=== PATIENT | female | born 1960 | race Caucasian/White ===

== ENCOUNTER 2020-04-28 22:25 | Outpatient (CLI) | payer OTHER, SELFPAY ==
--- NOTE | 2020-04-28 11:56 | DI.RAD_ITS ---
EXAM: XR LUMBAR SPINE COMPLETE CLINICAL HISTORY: Persistent radiculopathy despite PT M54.31 SCIATICA M25.551 PAIN RT HIP. TECHNIQUE: 2D digital imaging was performed. COMPARISON: No exams were available for comparison FINDINGS: There is severe narrowing of the L1-2 disc space greater on the left. There are prominent endplate o steophytes. There is severe narrowing of the L2-3 and L3-4 disc spaces, eccentric toward the right. There are prominent endplate osteophytes. There is moderate narrowing of the L4-5 disc space. Ther e is moderate narrowing of the L5-S1 disc space. Asymmetric degenerative disc changes create a mild- to-moderate levoscoliosis. Facet degenerative changes are seen greatest at L5-S1. There is no spond ylolysis or spondylolisthesis. The aorta shows calcification but is normal in diameter. IMPRESSION: Advanced degenerative disc changes throughout. Degenerative scoliosis. DATA REPOSITORY: RADIATION DOSE DELIVERED:
== END 2020-04-28 22:45 ==
PROVIDERS: Visit Provider Nurse Practitioner Family
DX: M47.26 Other spondylosis with radiculopathy, lumbar region (principal); M25.551 Pain in right hip; M54.31 Sciatica, right side; M41.86 Other forms of scoliosis, lumbar region
CPT/HCPCS: 72110

== ENCOUNTER 2020-05-22 09:35 | Outpatient (CLI) | payer OTHER, SELFPAY ==
--- NOTE | 2020-05-18 10:30 | DI.MRI_ITS ---
EXAM: MR LUMBAR SPINE WO CLINICAL HISTORY: XR SHOWED DJD,DISC SPACE NARROWING,SCIATICA RT SIDE,M54.31. TECHNIQUE: Multiplanar multisequence MRI of the Lumbar spine was performed. COMPARISON: CR XR LUMBAR SPINE COMPLETE from 04/28/2020 FINDINGS: Review of the plain films reveals transitional anatomy. There are 6 non rib-bearing vertebrae. Ther e are no plain films of the thoracic spine 2 aid in accurate counting. This is important if this pat ient is ever to be a surgical candidate (so as to avoid operating on the wrong level). The lower most vertebra will be named L5 for this examination. It will be assumed that T12 has rudim entary ribs. Please note that plain films reveal multi level chronic degenerative disc disease and d egenerative scoliosis convex left. MRI FINDINGS: Conus medullaris is at normal level. There is no evidence of conus mass nor subjacent clumping of in trathecal nerve roots to suggest arachnoiditis. The distal thecal sac appears unremarkable.There is no evidence of Tarlov intrasacral cysts nor other significant findings within the sacral canal. Bones:There are no fractures nor ominous osseous lesions in the lumbar vertebral bodies and visualize d sacrum. There are multilevel Modic sub endplate marrow changes. With respect to the individual levels... T12-L1: Decreased disc height and signal. Annular bulging but only minimal compression of the thecal sac. No true central canal stenosis. No prominent foraminal stenosis. Mild facet arthropathy. L1-2: Chronic decreased disc height and signal. There is broad annular bulging which is most promine nt on the right side where there is a disc protrusion at the level of the exiting right neural forame n. There is mild impression of the anterior thecal sac by the annular bulging. Mild central canal s tenosis. There is significant right-sided foraminal stenosis due to the disc protrusion plus signifi cant disc height loss at this level. Also related to the scoliosis. Only minimal narrowing of the o pposite left sided foramen. L2-3: Advanced disc height loss also at this level, more so on the right than the left. Annular bulg ing with significant extensive bulging into the exiting right neural foramen with significant narrowi ng of the exiting right neural foramen. No narrowing of the exiting left neural foramen. This is be cause of the better preservation of the disc height on the left side of this disc space. The annular bulging compresses the thecal sac resulting in mild-moderate central spinal canal stenosis. There a re mild degenerative changes in the facet joints. L3-4: Moderate disc space narrowing, also more prominent on the right than the left side of this disc space. There is broad annular bulging which flattens the anterior aspect of thecal sac and results in mild-moderate central spinal canal stenosis. Bulging annulus extends into the floor of the exitin g right neural foramen. There is moderate right-sided foraminal stenosis. No significant foraminal stenosis on the opposite-left side where there is better preservation of disc height.Diffuse annular bulging flattens the anterior aspect of the thecal sac. L4-5: This level exhibits milder disc space narrowing, more prominent on the left than the right side and there are Modic type 2 sub endplate marrow and fatty marrow changes. This level exhibits a part ial right laminectomy defect. There is annular bulging but no central spinal canal stenosis. The an nular bulging extends into the floor of the exiting left neural foramen and results in significant le ft-sided foraminal stenosis at this level due to a combination of the bulging annulus and more promin ent disc height loss on the left side than the right side of this disc space. There is no significan t foraminal narrowing on the right side. Minimal facet arthropathy. L5-S1: This level exhibits Modic type 2 sub endplate fatty marrow changes and disc space narrowing. Mild annular bulging with a superimposed central subligamentous disc protrusion which extends posteri brii 2 millimeters and is 13 millimeters wide. This contacts the anterior aspect of the thecal sac b ut the central canal dimensions are lower normal here. Annular bulging extends into the floor of the exiting neural foramina mildly but without significant foraminal stenosis on the right side. There is moderate foraminal stenosis on the left side at this level. Soft tissues: paraspinal soft tissues appear unremarkable. IMPRESSION: 1. Multilevel chronic advanced asymmetric degenerative disc space narrowing as described individually above, this resulting in multilevel asymmetric foraminal stenosis, also described individually above . The asymmetric foraminal stenosis is mostly related to asymmetric vertical foraminal stenosis whic h is due to asymmetry in height loss of disc material at multiple levels, as described above. There is only mild central spinal canal stenosis. 2. At L5-S1 level there is small central subligamentous disc protrusion which contacts the thecal sac but there is no true central canal stenosis at this level. 3. There is only mild facet arthropathy in the lumbar spine. 4. There appears to be a partial right-sided laminectomy defect at L4-5 level. There is no central canal stenosis at this level. 5. Please note that there is transitional anatomy here. There are 6 non rib-bearing vertebrae. If this patient is ever to be a surgical candidate then I recommend plain films of the thoracic spine so that accurate counting can be performed. In addition, if this patient is ever to be a surgical cand idate then close correlation of plain films with MRI is recommended, this so as to avoid operating on the wrong level. DATA REPOSITORY:
--- OUTSIDE RECORDS SUMMARY | 2020-05-22 09:39 | XMS_ITS ---
:1960 Author Care Team Providers Name Role Phone RICK MENA Primary Care Provider [phone] Allergies Code Code System Name Reaction Severity Status Onset NKDA ? Medications Name Status Start Date Stop Date ? ? amoxicillin 875 mg tablet Completed 08/23/20162016 1 (one) Tablet: bid - twice daily Chantix Continuing Month Box 1 mg tablet Completed 012 04/23/2012 1 (one) Tablet: daily Chantix Starting Month Box 0.5 mg (11)-1 mg (42) tablets in dose pack Completed 03/04/2011 04/23/2012 1 (one) Pack: Take per dosing instructions in package Cipro 250 mg tablet Completed 02/08/2010 02/09/2010 1 (one) Tablet: two times daily for 10 days clindamycin 2 % vaginal cream Completed 08/03/2013 1 (one) Applicator: At bedtime clindamycin HCl 300 mg capsule Completed 08/30/2016 0 09/06/2016 1 (one) Capsule: four times daily cyclobenzaprine 10 mg tablet Completed 04/13/2010 1 (one) Tablet: every 6-8 hrs at night diazepam 5 mg tablet Completed 06/26/2016 10/11/2016 1 (one) Tablet Tablet: every four hours, as needed Dilaudid 2 mg tablet Completed 06/11/2016 10/11/2016 1 (one) Tablet Tablet: as needed fluoxetine 10 mg capsule Active ? Not kentrell ilable TAKE 1 CAPSULE BY MOUTH ONCE DAILY gabapentin 100 mg capsule Completed 04/04/20102010 1-3 Capsule: at bedtime gabapentin 300 mg capsule Active ? Not av ailable hydrocodone 10 mg-acetaminophen 325 mg tablet Completed 04/04/2010 half - 2 Tablet: every 4-8 hrs as needed ibuprofen 800 mg tablet Completed 01/25/2014 06/02/19 16 1 (one) Tablet: 2-3 times daily lactulose 10 gram/15 mL oral solution Completed 04/02/2010 04/27/2010 1-2 Tablespoon(s): qd - daily or QOD prn Medrol (Lino) 4 mg tablets in a dose pack Completed 017 06/26/2016 1 (one) Milligram Milligram: as directed morphine 15 mg immediate release tablet Completed 04/13/19 11 04/27/2010 half - 1 Tablet: every 4-8 hours as needed nabumetone 500 mg tablet Completed 04/23/2012 013 1 (one)- 2 (two) Tablet: daily, as needed naproxen 500 mg tablet Completed 03/10/2008 9 1 (one) Tablet: Twice daily as needed for arm pain nicotine 7 mg/24 hr daily transdermal patch Active ? Not available Apply 1 patch every day by transdermal route. omeprazole 20 mg capsule,delayed release Completed 017 07/26/2016 1 (one) Capsule: qd - daily omeprazole 40 mg capsule,delayed release Completed 011 05/15/2010 1 (one) Capsule DR: daily ondansetron HCl 4 mg tablet Completed 06/10/201605/20 1 (one) Tablet: Every 6- 8 hours prn nausea prednisone 10 mg tablet Completed 06/26/2016 07/13/19 17 see comments Tablet: See comments triamcinolone acetonide 0.025 % topical cream Completed 09/06/2016 1 (one) Application: 2 times daily Ultram 50 mg tablet Completed 02/25/2008 02/25/2008 1-2 Tablet: At bedtime as needed for left arm and shoulder esperanza Problems Name Status Onset Date Source ? Mononeuritis Active ? History Idiopathic Osteoarthritis Active ? Histor y Osteoarthrosis of the Carpometacarpal Joint of Active ? History the Thumb Walking Disability Active ? History Degeneration of Lumbosacral Intervertebral Disc Active ? History Lumbosacral Radiculopathy Active ? Histor y Plantar Fascial Fibromatosis Active ? His tory Muscle Pain Unknown ? History Pain in Lower Limb Unknown ? History Lack of Energy Unknown ? History Nausea Unknown ? History Gynecologic Examination Unknown ? History Screening Mammography Unknown ? History Menopause Present Active ? History Pain in Left Knee Unknown ? History Anemia Unknown ? History Procedure by Method Unknown ? History Postprocedural Infection Unknown ? History Procedures Date Name Performed by ? 01/20/2014 Orthopedic Surgery Information not avai lable Notes: Left first [facility] Arthroplasty 10/15/2013 Orthopedic Surgery Information not avai lable Notes: Right first [facility] Arthroplasty 02/18/2004 Orthopedic Surgery Information not avai lable Notes: Left knee partial medical meni sectomy 03/19/2018 MAMMO, Screening, Tomosynthesis, [facility] Radiology (Internal) Bilateral [address] [place] [address] (Work Place) 04/08/2019 MAMMO, Screening, Tomosynthesis, [facility] Radiology (Internal) Bilateral [address] [place] [address] (Work Place) 11/12/2019 MAMMO, Screening, Tomosynthesis, [facility] Radiology (Internal) Bilateral [address] [place] [address] (Work Place) Results Lab Results Date Name Specimen Result Interpretation Description Value Range Status Address ? 11/12/2019 Pap Test, MISC ? Hpv see ? Final [facility] Thinprep, report Hospita l Lab Cervical (Interna l): [address] ? ? MISC ? Pap see ? Final [facility] report Hospital L ab (Internal) : [address] ? ? MISC ? Report (see ? Final [facility] ntry below) Hospital L ab (Internal) : [address] 06/21/2016 Venipuncture BLD ? Venpn* ? ? Final [facility] Hospital L ab (Internal) : [address] 06/21/2016 BMP, Serum or S High g/r 126 74- Final [facility] Plasma mg/dL 106 Hospital L ab mg/ (Internal) : dL [address] ? ? S ? Bun 11 mg/dL 7-1 Final [facility] unt 7 Hospital L ab mg/ (Internal) : dL [address] ? ? S ? Crea 0.70 0.5 Final [facility] try mg/dL 2-1 Hospital L ab .04 (Internal) : mg/ [address] ? ? S ? Ca 10.0 8.4 Final [facility] mg/dL -10 Hospital L ab .2 (Internal) : mg/ [address] ? ? S ? Na 137 137 Final [facility] mmol/L -14 Hospital L ab 5 (Internal) : mmo [address] ? ? S ? K 3.6 3.5 Final [facility] mmol/L -5. Hospital L ab 1 (Internal) : mmo [address] ? ? S ? Cl 101 98- Final [facility] mmol/L 107 Hospital L ab mmo (Internal) : l/L [address] ? ? S ? Tco2 27.0 22. Final [facility] mmol/L 0-3 Hospital L ab 0.0 (Internal) : mmo [address] Past Encounters 11/12/2019 Gynecologic Examination; Screening Mammo graphy; Nicotine Dependence Lizbeth Olmedo, CNM: [address] [place] [address], Ph. 04/09/2019 Knee Pain; [facility] of Left Foot Elliott Loya, DO: [address] [place] [id number], Ph. Social History Tobacco Smoking Status Current Every Day Smoker Notes: 5- 6 cigarettes per day Vaccine List Vaccine Type rubella Td (adult), adsorbed 12/20/2005 Tdap 12/20/2005 Plan of Care Reminders Provider Appointments None ? ? recorded. Lab None ? ? recorded. Referral None ? ? recorded. Procedures None ? ? recorded. Surgeries None ? ? recorded. Imaging None ? ? recorded. Vitals 11/12/2019 03:20PM HME 30 Height Weight BMI Blood Pressure 171.45 cm 74.39 kg 25.3 kg/m2 114/68 mm[Hg] 04/09/2019 01:00PM Follow Up 20 Height Weight BMI Blood Pressure 171.45 cm 75.75 kg 25.8 kg/m2 110/60 mm[Hg] 05/01/2018 02:30PM HME 30 Height Weight BMI Blood Pressure 171.45 cm 80.51 kg 27.4 kg/m2 114/68 mm[Hg] 01/01/2018 04:00PM Follow Up 40 Height Weight BMI Blood Pressure 171.45 cm 79.92 kg 27.2 kg/m2 110/70 mm[Hg] 11/28/2017 02:00PM Follow Up 20 Height Weight BMI Blood Pressure 171.45 cm 78.47 kg 26.7 kg/m2 110/72 mm[Hg] 03/14/2017 Height Weight Blood Pressure 171.45 cm 77.34 kg 116/72 mm[Hg] 10/11/2016 Weight Blood Pressure 79.38 kg 128/84 mm[Hg] 09/13/2016 Weight Blood Pressure 79.83 kg 128/74 mm[Hg] 08/23/2016 Weight Blood Pressure 77.56 kg 132/80 mm[Hg] 06/26/2016 Blood Pressure 140/90 mm[Hg] 06/11/2016 Height Weight Blood Pressure 171.45 cm 79.38 kg 110/70 mm[Hg] 12/22/2015 Height Weight Blood Pressure 171.45 cm 76.57 kg 124/84 mm[Hg] 06/02/2015 Height Weight Blood Pressure 172.72 cm 80.74 kg 118/74 mm[Hg] 12/09/2014 Height Weight Blood Pressure 172.72 cm 81.15 kg 114/72 mm[Hg] 07/15/2014 Height Weight Blood Pressure 172.72 cm 79.38 kg 112/68 mm[Hg] 01/10/2014 Height Weight Blood Pressure 173.99 cm 76.2 kg 120/84 mm[Hg] 12/03/2013 Height Weight Blood Pressure 173.99 cm 76.2 kg 116/82 mm[Hg] 12/02/2013 Height Weight Blood Pressure 173.99 cm 76.2 kg 102/68 mm[Hg] 10/29/2013 Height Weight Blood Pressure 173.99 cm 72.12 kg 116/70 mm[Hg] 08/24/2013 Height Weight Blood Pressure 173.99 cm 72.12 kg 116/64 mm[Hg] 08/03/2013 Height Weight Blood Pressure 173.99 cm 72.12 kg 114/72 mm[Hg] 07/27/2013 Height Weight Blood Pressure 173.99 cm 72.17 kg 128/74 mm[Hg] 03/26/2013 Height Weight Blood Pressure 173.99 cm 72.17 kg 138/76 mm[Hg] 11/20/2012 Height Weight Blood Pressure 173.99 cm 72.17 kg 102/78 mm[Hg] 11/06/2012 Height Weight Blood Pressure 173.99 cm 75.75 kg 116/82 mm[Hg] 10/27/2012 Height Weight Blood Pressure 173.99 cm 75.75 kg 124/72 mm[Hg] 07/28/2012 Height Weight Blood Pressure 173.99 cm 75.75 kg 110/82 mm[Hg] 06/30/2012 Height Weight Blood Pressure 173.99 cm 75.75 kg 124/78 mm[Hg] 04/23/2012 Height Weight Blood Pressure 173.99 cm 75.75 kg 114/74 mm[Hg] 07/04/2011 Height Weight Blood Pressure 173.99 cm 78.02 kg 102/62 mm[Hg] 06/28/2010 Height Weight Blood Pressure 172.72 cm 75.07 kg 118/72 mm[Hg] 05/15/2010 Height Weight Blood Pressure 172.72 cm 73.03 kg 120/78 mm[Hg] 04/27/2010 Blood Pressure 124/84 mm[Hg] 04/13/2010 Height Weight Blood Pressure 172.72 cm 73.03 kg 118/60 mm[Hg] 04/04/2010 Weight Blood Pressure 77.56 kg 132/84 mm[Hg] 02/20/2010 Blood Pressure 130/70 mm[Hg] 02/08/2010 Blood Pressure 116/78 mm[Hg] 02/06/2010 Weight Blood Pressure 70.76 kg 118/66 mm[Hg] 03/14/2009 Height Weight Blood Pressure 173.99 cm 73.94 kg 90/70 mm[Hg] 03/10/2008 Blood Pressure 108/70 mm[Hg] 03/04/2008 Weight Blood Pressure 73.94 kg 100/70 mm[Hg] 02/25/2008 Blood Pressure 110/80 mm[Hg] 02/04/2008 Blood Pressure 108/70 mm[Hg] 07/03/2007 Weight Blood Pressure 71.21 kg 112/76 mm[Hg] 01/16/2007 Height Weight Blood Pressure 175.26 cm 72.35 kg 106/68 mm[Hg] 03/07/2006 Weight Blood Pressure 79.83 kg 104/70 mm[Hg] 12/20/2005 Height Weight Blood Pressure 177.8 cm 75.52 kg 110/84 mm[Hg] 10/01/2005 Weight Blood Pressure 74.84 kg 106/64 mm[Hg] 02/12/2005 Weight Blood Pressure 81.65 kg 110/78 mm[Hg] 11/27/2004 Height Blood Pressure 177.8 cm 104/68 mm[Hg] 04/18/2004 Blood Pressure 110/68 mm[Hg]
== END 2020-05-22 09:55 ==
PROVIDERS: Visit Provider Nurse Practitioner Family
DX: M48.061 Spinal stenosis, lumbar region without neurogenic claudication (principal); M51.16 Intervertebral disc disorders with radiculopathy, lumbar region
CPT/HCPCS: 72148

== ENCOUNTER 2024-03-25 00:19 | Outpatient (CLI) | payer OTHER, SELFPAY ==
[2024-03-25] MEDS: Gadoterate meglumine 20 ML VIAL 15 ML IVP (13:58)
--- NOTE | 2024-03-25 14:30 | DI.MRI_ITS ---
Exam(s) MR IAC BRAIN WO/W EXAM: MR IAC BRAIN WO/W CLINICAL HISTORY: rt-sided sudden sensorineural hearing loss,h91.20. TECHNIQUE: Multiplanar multisequence MRI of the brain and internal auditory canals was performed. CONTRAST MATERIAL: IV Contrast: mL of Dotarem contrast administered. IV Contrast: 15 mL of Dotarem contrast administered. COMPARISON: No exams were available for comparison FINDINGS: VENTRICLES AND EXTRA AXIAL SPACES: Normal in size and morphology for the patient's age. HEMORRHAGE: None. CEREBRAL PARENCHYMA: No focus of restricted diffusion to suggest acute infarct. No space-occupying le yaa identified. Scattered high signal foci likely reflecting chronic microvascular changes. MIDLINE SHIFT: None. BRAINSTEM/CEREBELLUM: Normal. CALVARIUM: Normal. ENHANCEMENT: No suspicious enhancement identified. VISUALIZED PARANASAL SINUSES/MASTOIDS: Clear. ORBITS: Unremarkable. IAC/CP ANGLE: The internal auditory canals are within normal limits. The cerebellar pontine angles ar e unremarkable. No enhancing lesions are seen. Visualized portions of the cranial nerves appear withi n normal limits. Vasculature: The right vertebral artery is dominant and tortuous, crossing over the midline anterior to the medulla. The left vertebral artery is diminutive as also tortuous distally. There is no visi ble contact with the 7th and 8th nerves. IMPRESSION: Unremarkable MRI of the internal auditory canals. The brain shows high signal foci likely indicating microvascular changes. DATA REPOSITORY:
== END 2024-03-25 00:39 ==
LOC: DI 00:19
PROVIDERS: PCP Physician Assistant Medical; Visit Provider Registered Nurse Maternal Newborn
DX: H91.21 Sudden idiopathic hearing loss, right ear (principal)
CPT/HCPCS: 70553